=== PATIENT | female | born 1960 | race Hispanic/Latino ===

== ENCOUNTER 2021-09-24 17:41 | Emergency (ER) | payer OTHER ==
[2021-09-24] MEDS ORDERED: Boostrix 0.5 ML (Tdap) VIAL ONE (18:20)
[2021-09-24] MEDS ORDERED: Amoxicillin/Potassium Clav 875 MG TAB ONE (18:20)
== END 2021-09-24 18:39 | disposition home or self-care (01) ==
LOC: MADERS 17:41
DX: S41.151A Open bite of right upper arm, initial encounter (principal); S71.151A Open bite, right thigh, initial encounter; E78.00 Pure hypercholesterolemia, unspecified; W54.0XXA Bitten by dog, initial encounter
CPT/HCPCS: 90471; 90715